=== PATIENT | male | born 1985 | race Caucasian/White ===

== ENCOUNTER 2018-01-27 07:49 | Emergency (ER) | payer SELFPAY ==
[2018-01-27 08:01] VITALS: BP 117/77
--- NOTE | 2018-01-27 08:22 | UC ---
Upper Extremity HPI - HPI Summary HPI Summary: This is sabra Rendon documenting for attending Taye Olivares MD. This patient is a 32 year old M presenting to [facility] with a chief complaint of redness and swelling to the left elbow that began last night. The patient rates the pain 7/10 in severity. Patient reports hitting his elbow earlier that day during work but that it was only a mild injury. He states the pain didnt begin till later in the day. He reports pain with movement. NKDA. No hx of MRSA. - History of Current Complaint Chief Complaint: UCUpperExtremity Stated Complaint: SWOLLEN ELBOW Hx Obtained From: Patient Onset/Duration: Still Present Severity Initially: Severe Severity Currently: Severe Pain Intensity: 7 Pain Scale Used: 0-10 Numeric Location Of Pain: Is Discrete @ - l elbow Aggravating Factor(s): Movement Associated Signs And Symptoms: Positive: Swelling, Redness - Allergies/Home Medications Allergies/Adverse Reactions: Allergies Allergy/AdvReac Type Severity Reaction Status Date / Time stone fruits Allergy itchiness Uncoded 01/27/18 08:02 with swelling PMH/Surg Hx/FS Hx/Imm Hx Previously Healthy: Yes Other History Of: Negative For: Hepatitis C, Anticoagulant Therapy - Surgical History Surgical History: None - Family History Known Family History: Negative: Hypertension, Diabetes, Renal Disease, Respiratory Disease, Seizure Disorder, Blood Disorder - Social History Alcohol Use: Weekly Alcohol Amount: a few times per day Substance Use Type: None Smoking Status (MU): Former Smoker Type: Cigarettes Amount Used/How Often: a few a month Length of Time of Smoking/Using Tobacco: 10 years Have You Smoked in the Last Year: No Review of Systems Constitutional: Other - mild injury to the elbow Skin: Other - redness of the left elbow Musculoskeletal: Edema - l eblow All Other Systems Reviewed And Are Negative: Yes Physical Exam - Summary Physical Exam Summary: General: well-appearing, no pain distress Skin: warm, color reflects adequate perfusion, dry Head: normal Eyes: EOMI, ZEESHAN ENT: normal Neck: supple, nontender Respiratory: CTA, breath sounds present Cardiovascular: RRR Abdomen: soft, nontender Bowel: present Musculoskeletal: left elbow over the olecranon there is erythema 3 cm in diameter there is some mild swelling. Minimal fluctuance no obvious fluid collection large enough for drainage Neurological: sensory/motor intact, A&O x3 Psychological: affect/mood appropriate Triage Information Reviewed: Yes Vital Signs: Initial Vital Signs Temp 99 F 01/27/18 07:59 Pulse 80 01/27/18 07:59 Resp 16 01/27/18 07:59 BP 117/77 01/27/18 07:59 Pulse Ox 100 01/27/18 07:59 Vital Signs Reviewed: Yes Upper Extremity Course/Dx - Course Course Of Treatment: NO DRAINABLE FLUID COLLECTION. F/U PMD; RECHECK SOONER IF WORSE. - Differential Dx/Diagnosis Provider Diagnoses: LEFT ELBOW CELLULITIS Discharge - Sign-Out/Discharge Documenting (check all that apply): Patient Departure - Discharge Plan Condition: Stable Disposition: HOME Prescriptions: Cephalexin CAP* [Keflex CAP*] 500 mg PO QID #40 cap Patient Education Materials: Cellulitis (ED) Referrals: [facility] [Outside] Additional Instructions: FOLLOW UP WITH YOUR DOCTOR IF NOT COMPLETELY IMPROVED. GET RECHECKED FOR ANY WORSENING OF YOUR CONDITION; SPREAD OF INFECTION, FEVER, YOU FEEL ILL OR QUESTIONS OR CONCERNS. - Billing Disposition and Condition Condition: STABLE Disposition: Home Attestation Statement Scribe Attestation: This is sabra Rendon documenting for attending Taye Olivares MD. User Type: Provider with Scribe Provider Attestation: The documentation recorded by the thadibcaro accurately reflects the service I personally performed and the decisions made by me.
== END 2018-01-27 08:32 | disposition home or self-care (01) ==
LOC: UCEAST 07:49
DX: L03.114 Cellulitis of left upper limb (principal)
CPT/HCPCS: 99202; G0463

== ENCOUNTER 2018-08-26 09:55 | Emergency (ER) | payer SELFPAY ==
[2018-08-26 10:17] VITALS: BP 138/87
--- NOTE | 2018-08-26 12:36 | UC ---
Skin Complaint HPI - HPI Summary HPI Summary: 32 y/o male presents to the urgent care c/o facial rash and itchy dry spots started intermit in June/2018. However, for the past 2 days facial rash has worsened significantly w/ redness and itchiness. He also has some scattered papule w/ some drainage. He has used PONDS facial lotion w/o any improvement. He thinks he touch something, but unsure what it was because itchiness started suddenly. Pt denies trouble breathing swallowing, sore throat, hoarseness, swelling, SOB, chest pain, abdominal pain, N/V/D. Facial pain, fever. He can't recall eating something different, or change of detergents or body lotions. - History of Current Complaint Chief Complaint: UCRash Time Seen by Provider: 08/26/18 12:34 Stated Complaint: FACIAL RASH Hx Obtained From: Patient Onset/Duration: Gradual Onset, Lasting Weeks - 2 months, Still Present, Worse Since - 2 days with suddent itchiness and redness Skin Exposure Onset/Duration: Worse Since: - 2 days Timing: Constant Onset Severity: Mild Current Severity: Moderate Pain Intensity: 0 Pain Scale Used: 0-10 Numeric Location: Diffuse, Discrete - his face Character: Pruritus, Redness Aggravating Factor(s): Touch Alleviating Factor(s): OTC Creams/Salves Associated Signs & Symptoms: Positive: Rash - face w/ redness adn itchiness, Drainage - in some papules. Negative: Difficulty Breathing, Fever, Chills, Wheezing, Hoarseness, Throat Tightening, Tenderness Related History: Possible Reaction to: Environmental Exposure - Allergy/Home Medications Allergies/Adverse Reactions: Allergies Allergy/AdvReac Type Severity Reaction Status Date / Time stone fruits Allergy itchiness Uncoded 08/26/18 10:17 with swelling PMH/Surg Hx/FS Hx/Imm Hx Previously Healthy: Yes - Pt denies PMHX Other History Of: Negative For: Hepatitis C, Anticoagulant Therapy - Surgical History Surgical History: None - Family History Known Family History: Positive: None - Pt denies FMHX Negative: Hypertension, Diabetes, Renal Disease, Respiratory Disease, Seizure Disorder, Blood Disorder - Social History Occupation: Employed Full-time Lives: With Family Alcohol Use: Weekly Alcohol Amount: a few times per day Substance Use Type: None Smoking Status (MU): Former Smoker Type: Cigarettes Amount Used/How Often: a few a month Length of Time of Smoking/Using Tobacco: 10 years Have You Smoked in the Last Year: No Review of Systems All Other Systems Reviewed And Are Negative: Yes Constitutional: Positive: Negative Skin: Positive: Rash - facial rash w/ redness and itchiness Eyes: Positive: Negative ENT: Positive: Negative Respiratory: Positive: Negative Cardiovascular: Positive: Negative Gastrointestinal: Positive: Negative Genitourinary: Positive: Negative Motor: Positive: Negative Neurovascular: Positive: Negative Musculoskeletal: Positive: Negative Neurological: Positive: Negative Psychological: Positive: Negative Is Patient Immunocompromised?: No Physical Exam - Summary Physical Exam Summary: Vital Signs Reviewed: Yes General: well appearing, well nourished male in no acute apparent respiratory distress, sitting comfortably on examining table Eye Exam: Normal Eyes: Positive: Conjunctiva Clear - PERRLA< EOMI, fundi grossly normal ENT: Positive: Normal ENT inspection, Hearing grossly normal, Pharynx normal, TMs normal Neck: Positive: Supple, Nontender, No Lymphadenopathy Respiratory: Positive: Chest non-tender, Lungs clear, Normal breath sounds, No respiratory distress Cardiovascular: Positive: RRR, No Murmur, Pulses Normal, Brisk Capillary Refill Abdomen Description: Positive: Nontender, No Organomegaly, Soft. Negative: CVA Tenderness (R), CVA Tenderness (L) Bowel Sounds: Positive: Present Musculoskeletal: Positive: Strength Intact, ROM Intact, No Edema Neurological: Positive: Alert, Muscle Tone Normal Psychological Exam: Normal Skin: Positive: Positive face w/ erythematous patches, flushed and signs of excoriation and scattered opne and closed comedones with some white pustules in al face. non tender to palpation, mild drainage observed in some papules. pulses WNL, capillary refill brisk, sensation WNL. Triage Information Reviewed: Yes Vital Signs: Initial Vital Signs Temp 98.6 F 08/26/18 10:13 Pulse 61 08/26/18 10:13 Resp 16 08/26/18 10:13 BP 138/87 08/26/18 10:13 Pulse Ox 100 08/26/18 10:13 Course/Dx - Course Course Of Treatment: 32 y/o male presents to the urgent care c/o facial rash and itchy dry spots started intermit in June/2018. However, for the past 2 days facial rash has worsened significantly w/ redness and itchiness. He also has some scattered papule w/ some drainage. He has used PONDS facial lotion w/ o any improvement. He thinks he touch something, but unsure what it was because itchiness started suddenly. Pt denies trouble breathing swallowing, sore throat, hoarseness, swelling, SOB, chest pain, abdominal pain, N/V/D. Facial pain, fever. He can't recall eating something different, or change of detergents or body lotions. Hx obtained. Pt w/ possible acne exacerbated by contact dermatitis on examination. Pt is hemodynamically stable, O2Sat: 100%. Pt Rx Prednisone taper dose, Bendaryl PO and doxycycline PO as directed below to alleviate symptoms. Pt givent referral w/ [facility] Dr Humphreys for further magement on his Acne. D/c instructions explained. Pt understood and agreed w/ plan of care. - Differential Diagnoses - Skin Complaint Differential Diagnoses: Abscess, Allergic Reaction, Contact Dermatitis, Drug Rash, Local Allergic Reaction, MRSA, Urticaria, Other - acne - Diagnoses Provider Diagnosis: Contact dermatitis, Acne vulgaris Discharge - Sign-Out/Discharge Documenting (check all that apply): Patient Departure - D/C home All imaging exams completed and their final reports reviewed: No Studies - Discharge Plan Condition: Stable Disposition: HOME Prescriptions: diPHENhydraMINE PO* [Benadryl PO 25 MG TAB*] 25 mg PO TID PRN #30 tab PRN Reason: pruritus DOXYcycline CAP(*) [DOXYcycline 100MG CAP(*)] 100 mg PO DAILY #14 cap predniSONE TAB* [Deltasone 20 MG TAB*] 20 mg PO DAILY #11 tab Patient Education Materials: Contact Dermatitis (ED) Referrals: [facility] [Outside] - 3 Days Karla Humphreys [Medical Doctor] - 2 Days Additional Instructions: 1-Please Start taking Prednisone PO taper dose as directed to alleviate possible allergic reaction. 2- Please take Benadryl PO to alleviate itchiness. 3- Your facial rash may also be a combination w/ acne. Please start taking Doxycycline PO as directed. But please F/u w/ [facility] Dr Humphreys in 2- 3 days for further management. 4- If symptoms worsen and you develop SOB or difficulty breathing please go immediately to the ER for further management. - Billing Disposition and Condition Condition: STABLE Disposition: Home
== END 2018-08-26 13:09 | disposition home or self-care (01) ==
LOC: UCEAST 09:55
DX: L70.0 Acne vulgaris (principal); L25.9 Unspecified contact dermatitis, unspecified cause; Z87.891 Personal history of nicotine dependence; Z91.018 Allergy to other foods
CPT/HCPCS: 99212; G0463